=== PATIENT | male | born 1985 | race Caucasian/White ===

== ENCOUNTER 2019-02-15 10:09 | Emergency (ER) | payer OTHER, BC ==
[2019-02-15] MEDS ORDERED: ACETAMINOPHEN 325 MG TABLET PO ONE (10:22)
[2019-02-15] MEDS ORDERED: DIPH/PERTUSS(ACELL)/TETANUS VAC/PF 0.5 ML SYR (>=10YO) IM ONE (10:23)
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
[2019-02-15 11:23] VITALS: BP 131/93
== END 2019-02-15 11:20 | disposition home or self-care (01) ==
LOC: ER 10:09
DX: M79.641 Pain in right hand (principal); R68.84 Jaw pain; Y04.8XXA Assault by other bodily force, initial encounter; Y99.0 Civilian activity done for income or pay; F17.200 Nicotine dependence, unspecified, uncomplicated; I10 Essential (primary) hypertension; E11.9 Type 2 diabetes mellitus without complications
CPT/HCPCS: 90471; 90715; 99284